=== PATIENT | male | born 1995 | race African-American/Black ===

== ENCOUNTER 2022-08-12 13:00 | Inpatient (IN) | payer MEDICAID, SELFPAY ==
[2022-08-12] VITALS (8 sets, daily range): BP systolic 126–146; BP diastolic 51–78; PULSE 60–105; RESP 14–18; TEMP 36.6–37.1; O2SAT 96–100; BMI 27.1; BMI 26.8
[2022-08-12 15:51] LABS: Absolute Lymphocyte Count 2.83 X10^3/uL (0.83-4.51); Absolute Neutrophil Count 11.6 X10^3/uL (2.0-7.7); Basophil# 0.11 X10^3/uL; Basophil% 0.7 % (0-1); Eosinophil# 0.17 X10^3/uL; Eosinophils% 1.1 % (0-5); Hemoglobin 14.8 g/dL (13.0-16.5); Lymphocyte # 2.83 X10^3/ul (0.83-4.51); Lymphocyte % 17.9 % (19-41); Mean Corp Hgb Conc 36.1 g/dL (32-36); Mean Corpuscular Hgb 28.4 pg (27.0-32.0); Mean Corpuscular Volume 78.7 fL (80-94); Mean Platelet Vol. 9.9 fl (6.2-12.0); Monocyte# 1.07 X10^3/uL; Monocyte% 6.8 % (0-10); NRBC Flagged by Analyzer 0.3 % (0-5); Neutrophil # 11.58 X10^3/uL (2.7-7.7); Neutrophil % 73.2 % (47-70); Platelet Count 326 K/mm3 (150-450); RBC Distribution Width CV 17.2 % (11.6-14.6); RBC Distribution Width SD 48.7 fl (35.1-43.9); Red Blood Count 5.21 M/mm3 (4.6-6.2); White Blood Count 15.8 K/mm3 (4.4-11.0)
[2022-08-12 16:09] LABS: ALB/GLOB Ratio 1.2 RATIO (0.9-2.4); AST(SGOT) 18 U/L (15-37); Alanine Aminotransfer ALT/SGPT 19 U/L (16-61); Albumin, Serum 4.1 g/dL (3.2-5.0); Alkaline Phosphatase 70 U/L (45-117); Anion Gap 8 (5-15); BUN 11 mg/dL (7-18); BUN/Creat Ratio 9.3 RATIO (10-20); Chloride 106 mmol/L (98-107); Creatinine, Serum 1.18 mg/dL (0.70-1.30); EST Glomerular Filtration Rate 79 mL/min (>60); Est Glom Filt Rate - Afr Amer 96 mL/min (>60); Estimated Creatinine Clearance 116.47 ml/min; Globulin 3.3 g/dL (2.2-4.2); Glucose 91 mg/dL (74-106); Potassium 3.6 mmol/L (3.5-5.1); Protein, Total 7.4 g/dL (6.4-8.2); Sodium Level 141 mmol/L (136-145)
--- NOTE | 2022-08-12 16:26 | CASEMGMT ---
CHELITA Note Referral Reason: DEIRDRE MERLOS met with patient and introduced herself and role as [facility] Senior Education Specialist. CHELITA inquired about patient's AOD history. Patient informed SW he wants to detox from alcohol and fentanyl, both last used yesterday. SW reviewed [facility] rules such as personal belongings being locked up. SW informed patient he would work with Gurdeep, addictions therapist, to discuss discharge planning when appropriate. Patient was receptive towards information and reported an understanding. SW left for Gurdeep, Addiction therapist, to inform her of the new admit. Plan: DEIRDRE SHAFER
[2022-08-12 16:29] LABS: Alcohol, Blood (Medical)-Serum < 3.0 mg/dL
[2022-08-12 16:29] LABS: Amphetamine Urine VISTA NEGATIVE (<1000 ng/mL); Barbiturate Urine VISTA NEGATIVE (< 200 ng/mL); Benzodiazepine Urine VISTA NEGATIVE (< 200 ng/mL); Cocaine Urine VISTA NEGATIVE (< 300 ng/mL); Ecstacy Urine VISTA NEGATIVE (< 500 ng/mL); Methadone Urine VISTA NEGATIVE (< 300 ng/mL); PCP Urine VISTA NEGATIVE (< 25 ng/mL); THC Urine VISTA POSITIVE (< 50 ng/mL); Vista UDS pH Range 6
--- NOTE | 2022-08-12 16:33 | EX.ED.DYSGE1 ---
HPI History of Present Illness Chief Complaint: Substance Abuse Informant: patient Narrative Narrative: Patient requests detox from fentanyl, heroin, and alcohol. He is working with a program in town called [facility]. He states he has been using fentanyl and heroin for quite a long time. He will use as much as he can get a hold of in any given day. He typically snorts drugs. He also admits to alcohol years. He states he drinks hard liquor and really does not drink a lot of alcohol, however he has gone through alcohol withdrawal in the past. He has never had seizures with alcohol withdrawal. [facility] Medical History Drug abuse Insomnia Allergy/AdvReac Type Severity Reaction Status Date / Time No Known Allergies Allergy Verified 08/12/22 13:00 Social History Smoking Status: Current every day smoker tobacco type: cigarettes ROS ROS ED Constitutional Constitutional ED: Denies chills or fever(s) Eyes Eyes: Denies change in vision or discharge from eye(s) ENT ENT ED: Denies discharge from eye(s), rhinorrhea or sore throat Cardiovascular Cardiovascular: Denies chest pain or palpitations Respiratory/Chest Respiratory/Chest: Denies cough or dyspnea Gastrointestinal Gastrointestinal: Denies abdominal pain, diarrhea, nausea or vomiting Genitourinary Genitourinary ED: Denies difficulty urinating or dysuria Musculoskeletal Musculoskeletal: Denies back pain or extremity pain Integumentary Denies Abrasions or rash Neurologic Neurologic: Denies headache(s) or weakness Psychiatric Psychiatric: Denies anxiety or depression Endocrine Endocrinology: Denies polydipsia or polyuria Allergic/Immunologic Allergic/Immunologic ED: Denies lip swelling or urticaria EXAM Physical Exam Const Vital Signs: 08/12/22 13:01 08/12/22 16:31 Temperature 98.4 F Temperature Source Temporal Pulse Rate 105 H 63 Respiratory Rate 18 14 Blood Pressure 126/78 H 146/64 H Blood Pressure Mean 94 91 Pulse Ox 99 100 Oxygen Delivery Method Room Air Room Air Positive well nourished and well developed General Appearance ED: well developed HEENT Reports normocephalic and head/scalp atraumatic Eyes PERRL and EOMs intact bilaterally Neck supple Chest Wall inspection of chest normal and palpation of chest normal Resp normal respiratory effort and clear to auscultation bilaterally Cardio regular rate and regular rhythm GI normal to inspection, nondistended, normoactive bowel sounds Palpation: soft Back/Spine no CVA tenderness Extremity normal to inspection Neuro oriented x3 and no sensory deficits noted Sensorium / Orientation: alert Motor Exam: strength 5/5 throughout Psych mental status grossly normal Skin no rashes or lesions noted MDM MDM MDM Narrative Medical decision making narrative: Lab work for addiction medicine obtained. Patient agreed to the contract for the detox program. Lab Data Attestation: I reviewed the patient's lab results. Labs: Laboratory Results - last 24 hr 08/12/22 08/12/22 08/12/22 15:35 15:35 15:35 WBC 15.8 H RBC 5.21 Hgb 14.8 Hct 41.0 MCV 78.7 L MCH 28.4 MCHC 36.1 H RDW Std Deviation 48.7 H RDW Coeff of Omar 17.2 H Plt Count 326 MPV 9.9 Immature Gran % (Auto) 0.300 Neut % (Auto) 73.2 H Lymph % (Auto) 17.9 L [place] % (Auto) 6.8 Eos % (Auto) 1.1 Baso % (Auto) 0.7 Absolute Neuts (auto) 11.6 H Absolute Lymphs (auto) 2.83 Nucleated RBC % 0.3 Sodium 141 Potassium 3.6 Chloride 106 Carbon Dioxide 27.0 Anion Gap 8 BUN 11 Creatinine 1.18 Estim Creat Clear Calc 116.47 Est GFR (MDRD) Af Amer 96 Est GFR (MDRD) Non-Af 79 BUN/Creatinine Ratio 9.3 L Glucose 91 Calcium 9.0 Total Bilirubin 1.30 H AST 18 ALT 19 Alkaline Phosphatase 70 Total Protein 7.4 Albumin 4.1 Globulin 3.3 Albumin/Globulin Ratio 1.2 Urine Opiates Screen Urine Methadone Screen Ur Barbiturates Screen Ur Phencyclidine Scrn Ur Amphetamines Screen MDMA (Ecstasy) Screen U Benzodiazepines Scrn Urine Cocaine Screen U Cannabinoids Screen Ur Drug Screen Comment Ethyl Alcohol < 3.0 08/12/22 15:50 WBC RBC Hgb Hct MCV MCH MCHC RDW Std Deviation RDW Coeff of Omar Plt Count MPV Immature Gran % (Auto) Neut % (Auto) Lymph % (Auto) [place] % (Auto) Eos % (Auto) Baso % (Auto) Absolute Neuts (auto) Absolute Lymphs (auto) Nucleated RBC % Sodium Potassium Chloride Carbon Dioxide Anion Gap BUN Creatinine Estim Creat Clear Calc Est GFR (MDRD) Af Amer Est GFR (MDRD) Non-Af BUN/Creatinine Ratio Glucose Calcium Total Bilirubin AST ALT Alkaline Phosphatase Total Protein Albumin Globulin Albumin/Globulin Ratio Urine Opiates Screen NEGATIVE Urine Methadone Screen NEGATIVE Ur Barbiturates Screen NEGATIVE Ur Phencyclidine Scrn NEGATIVE Ur Amphetamines Screen NEGATIVE MDMA (Ecstasy) Screen NEGATIVE U Benzodiazepines Scrn NEGATIVE Urine Cocaine Screen NEGATIVE U Cannabinoids Screen POSITIVE H Ur Drug Screen Comment Ethyl Alcohol Treatment and Re-Evaluation Narrative: White count is elevated at 15.8 with 73% neutrophils. Chemistry studies are unremarkable. LFTs significant only for a total bili of 1.3. EtOH is less than 3. Talk screen is positive only for cannabinoids. I spoke with the hospitalist who will be down to see the patient for admission. Discharge Plan Triage Chief Complaint: Substance Abuse ED Provider: Alona Shah Dx/Rx/DC Orders Clinical Impression: Desire for detoxification, Alcohol abuse, Opiate abuse, continuous Primary Care Provider: Care Physician,No Primary Disposition Disposition: Acute Care Hospital [facility]
--- NOTE | 2022-08-12 16:35 | ED.RN ---
PER PT OKAY TO GIVE INFORMATION/ UPDATES TO PHYLLIS MONTEIRO AT [phone] OR SAVITA MARTINEZ AT [phone]
--- NOTE | 2022-08-12 16:47 | HP.PCM.HOS_ITS ---
HPI - General General Date of Admission: 08/12/22 Date of Service: 08/12/22 Chief Complaint: Opiate/alcohol detox HPI Narrative ALVARO ZAPATA, is a 27 M who presented to the emergency department was [facility] on 08/12/2021 requesting detox from opiates and alcohol. The patient states he has been a longtime heavy drinker. He drinks approximately 1 pint of hard liquor daily. He has been through alcohol withdrawal before but never had seizures. With regards to his opiate abuse he, he states that he started abusing prescription drugs as he has a history of sickle cell disease and they were readily accessible. He states in 2019 he began abusing fentanyl and heroin. He is never used IV and all of his use has been intranasal. Last use was the day prior to presentation. He states he uses approximately 2 g daily. He is currently complaining of some nausea without vomiting and generalized malaise with body aches. Vital signs at presentation demonstrated a temperature of 98.4, heart rate 105, blood pressure 126/78, respiratory was 18 and oxygen saturation was 99% on room air. CBC showed a leukocytosis with a mild left shift at 73.2% neutrophilia. His hemoglobin was stable however his MCV is low consistent with sickle cell disease. His chemistry panel was unremarkable other than mildly elevated total bilirubin at 1.30. His toxicology was positive only for cannabis and his alcohol level was negative. [facility] Medical History Drug abuse Insomnia Marijuana use Sickle cell disease Tobacco abuse Allergy/AdvReac Type Severity Reaction Status Date / Time No Known Allergies Allergy Verified 08/12/22 13:00 Family History (Updated 08/12/22 @ 16:[address] Harriet Schwarz DO) Other Sickle cell anemia no surgical history Social History (Updated 08/12/22 @ 16:[address] Harriet Schwarz DO) Smoking Status: Current every day smoker tobacco type: cigarettes Smoking packs per day: 1 Smoking cigarettes per day: 20.0 alcohol intake: current alcohol intake frequency: 3 or more drinks per day details: Drinks approximately 1 pint of hard liquor daily substance use type: marijuana, heroin, opiates, painkillers and other details: Fentanyl Vital Signs Vital Signs Vital Signs: 08/12/22 13:01 08/12/22 16:31 Temperature 98.4 F Temperature Source Temporal Pulse Rate 105 H 63 Respiratory Rate 18 14 Blood Pressure 126/78 H 146/64 H Blood Pressure Mean 94 91 Pulse Ox 99 100 Oxygen Delivery Method Room Air Room Air Weight Weight: 101.151 kg Body Mass Index (BMI) 27.1 Physical Exam Const alert, oriented x3, no apparent distress, average body habitus and well nourished Constitutional Narrative: Very pleasant, -Azerbaijani male sitting up in a a bed, appears comfortable at this time, nontoxic General Appearance: cooperative HEENT normocephalic, head/scalp atraumatic, hearing grossly normal bilaterally and moist oral mucous membranes Resp normal respiratory effort, no retractions, no use of accessory muscles and clear to auscultation bilaterally Auscultation: Negative for crackles, rhonchi or wheezes Cardio regular rate, regular rhythm, S1 normal heart sound, S2 normal heart sound, no murmurs, no rub, no gallops and no clicks GI normal to inspection, nondistended, normoactive bowel sounds, soft to palpation and non-tender Extremity no clubbing, cyanosis or edema Extremity Narrative: 2+ pedal pulses Skin no rashes or lesions noted, no wounds, skin turgor normal, no jaundice, no petechiae and no mottling Skin Narrative: Multiple tattoos, no track alcaraz Neuro oriented x3, CN's II-XII intact bilaterally, moves all extremities and no focal motor deficits Speech: speech normal Motor Exam: strength 5/5 throughout Psych affect normal Psych Narrative: Very pleasant, appreciative of care and appropriately interactive Results Lab / Micro Data Result Diagrams: 08/12/22 15:35 08/12/22 15:35 Labs: Laboratory Results - last 24 hr 08/12/22 15:35: WBC 15.8 H, RBC 5.21, Hgb 14.8, Hct 41.0, MCV 78.7 L, MCH 28.4, MCHC 36.1 H, RDW Std Deviation 48.7 H, RDW Coeff of Omar 17.2 H, Plt Count 326, MPV 9.9, Immature Gran % (Auto) 0.300, Neut % (Auto) 73.2 H, Lymph % (Auto) 17.9 L, [place] % (Auto) 6.8, Eos % (Auto) 1.1, Baso % (Auto) 0.7, Absolute Neuts (auto) 11.6 H, Absolute Lymphs (auto) 2.83, Nucleated RBC % 0.3 08/12/22 15:35: Sodium 141, Potassium 3.6, Chloride 106, Carbon Dioxide 27.0, Anion Gap 8, BUN 11, Creatinine 1.18, Estim Creat Clear Calc 116.47, Est GFR (MDRD) Af Amer 96, Est GFR (MDRD) Non-Af 79, BUN/Creatinine Ratio 9.3 L, Glucose 91, Calcium 9.0, Total Bilirubin 1.30 H, AST 18, ALT 19, Alkaline Phosphatase 70, Total Protein 7.4, Albumin 4.1, Globulin 3.3, Albumin/Globulin Ratio 1.2 08/12/22 15:35: Ethyl Alcohol < 3.0 08/12/22 15:50: Urine Opiates Screen NEGATIVE, Urine Methadone Screen NEGATIVE, Ur Barbiturates Screen NEGATIVE, Ur Phencyclidine Scrn NEGATIVE, Ur Amphetamines Screen NEGATIVE, MDMA (Ecstasy) Screen NEGATIVE, U Benzodiazepines Scrn NEGATIVE, Urine Cocaine Screen NEGATIVE, U Cannabinoids Screen POSITIVE H, Ur Drug Screen Comment Assessment & Plan Assessment/Plan (1) Alcohol abuse: (2) Opiate abuse, continuous: (3) Desire for detoxification: (4) Leukocytosis: PLAN: Plan Alcohol abuse -Patient drinks about 1 pint of hard liquor a day -He has been through alcohol withdrawal in the past but never had seizures -Start phenobarbital taper -Thiamine and folate -supportive medications for symptom management -180 consultation Opiate detox -Patient states has been using intranasal fentanyl and heroin since approximately 2019 -Never has injected -Prior to that he was using prescription pills and abusing them as he has a history of sickle cell disease and they were readily accessible -Subutex per [facility] protocol -Supportive medication -Check HIV -180 consultation Leukocytosis -Suspect reactive -No signs of infection -Repeat CBC in a.m. History of sickle cell disease -Current hemoglobin is 14.8 but MCV is 78.7 consistent with sickle cell disease -No sign of acute decompensation -Monitor clinically Polysubstance abuse -Marijuana/opiates/alcohol -See above Tobacco abuse -Nicotine patch -Patient smokes 1 pack of cigarettes daily -Recommend cessation DVT prophylaxis -Low risk -Early ambulation CODE STATUS -Full code Charges/Coding Visit Charges Inpatient E&M: 50339 Init Hosp L1
[2022-08-12 17:46] LABS: HIV - WCH Non-Reactive (Nonreactive)
[2022-08-12] MEDS: Phenobarbital 32.4 MG Tablet 64.8 MG PO ×2 (18:45→22:28)
[2022-08-12] MEDS: hydrOXYzine PAM 25 MG Capsule 50 MG PO (18:46)
[2022-08-12] MEDS: Ondansetron 8 MG Tablet PO (18:48)
[2022-08-12] MEDS: Acetaminophen 325 MG Tablet 650 MG PO (19:03)
[2022-08-12] MEDS: Buprenorphine HCl 2 MG TAB.SUBL SL (20:12)
[2022-08-13] VITALS (8 sets, daily range): BP systolic 105–127; BP diastolic 43–56; PULSE 55–78; RESP 14–18; TEMP 36.3–36.7; O2SAT 96–100
[2022-08-13] MEDS: Phenobarbital 32.4 MG Tablet 64.8 MG PO ×6 (01:43→22:08)
[2022-08-13] MEDS: Buprenorphine HCl 2 MG TAB.SUBL SL ×3 (04:39→19:54)
[2022-08-13 06:58] LABS: Absolute Lymphocyte Count 3.05 X10^3/uL (0.83-4.51); Basophil# 0.11 X10^3/uL; Eosinophil# 0.38 X10^3/uL; Eosinophils% 3.5 % (0-5); Hematocrit 36.1 % (40-54); Hemoglobin 13.3 g/dL (13.0-16.5); Lymphocyte # 3.05 X10^3/ul (0.83-4.51); Lymphocyte % 28.1 % (19-41); Mean Corp Hgb Conc 36.8 g/dL (32-36); Mean Corpuscular Hgb 28.4 pg (27.0-32.0); Mean Corpuscular Volume 77.1 fL (80-94); Mean Platelet Vol. 9.7 fl (6.2-12.0); Monocyte# 1.24 X10^3/uL; Monocyte% 11.4 % (0-10); NRBC Flagged by Analyzer 0.3 % (0-5); Neutrophil # 6.04 X10^3/uL (2.7-7.7); Neutrophil % 55.6 % (47-70); Platelet Count 266 K/mm3 (150-450); RBC Distribution Width CV 16.8 % (11.6-14.6); RBC Distribution Width SD 46.9 fl (35.1-43.9); Red Blood Count 4.68 M/mm3 (4.6-6.2); White Blood Count 10.9 K/mm3 (4.4-11.0)
[2022-08-13] MEDS: Folic Acid 1 MG Tablet PO (10:01)
[2022-08-13] MEDS: Thiamine Hydrochloride 100 MG Tablet PO (10:01)
[2022-08-13] MEDS: Gabapentin 300 MG Capsule PO ×2 (10:01→18:17)
[2022-08-13] MEDS: Ondansetron 8 MG Tablet PO ×2 (10:11→19:40)
--- NOTE | 2022-08-13 10:25 | ADDICTION ---
This teletypewriter operator met with PT to conduct ASAM, MSE, AUDIT, DUDIT assessments and to plan for d/c. PT A+Ox4 and participated actively. All assessments completed and placed in PT's chart. PT will f/u with [facility] for follow-up recovery services. A cpr ambulance driver from this facility will provide transportation.
[2022-08-13] MEDS: hydrOXYzine PAM 25 MG Capsule 50 MG PO (11:53)
[2022-08-13] MEDS: cloNIDine HCl 0.1 MG Tablet PO (11:53)
--- NOTE | 2022-08-13 13:03 | PCM.PN.HOSP ---
Subjective Subjective Follow-up on acute opioid and alcohol withdrawal: Patient was seen and examined. He complains of feeling restless. No other acute events overnight. Objective Data Objective Data Vital Signs: Vital Signs Temp Pulse Resp BP Pulse Ox O2 Del Method 97.3 F L 78 18 122/51 H 100 Room Air 08/13/22 09:44 08/13/22 09:44 08/13/22 09:44 08/13/22 09:44 08/13/22 09:44 08/13/22 10:00 Oxygen Delivery Method Room Air Weight: 99.972 kg Body Mass Index (BMI) 26.8 Intake & Output: Intake and Output for Last 24 Hours 08/11/22 08/12/22 08/13/22 23:59 23:59 23:59 Intake Total 240 / 540 1200 / 1200 Balance 240 / 540 1200 / 1200 Lab / Micro Data Result Diagrams: 08/13/22 06:48 08/12/22 15:35 Labs: Laboratory Results - last 24 hr 08/12/22 15:35: WBC 15.8 H, RBC 5.21, Hgb 14.8, Hct 41.0, MCV 78.7 L, MCH 28.4, MCHC 36.1 H, RDW Std Deviation 48.7 H, RDW Coeff of Omar 17.2 H, Plt Count 326, MPV 9.9, Immature Gran % (Auto) 0.300, Neut % (Auto) 73.2 H, Lymph % (Auto) 17.9 L, [place] % (Auto) 6.8, Eos % (Auto) 1.1, Baso % (Auto) 0.7, Absolute Neuts (auto) 11.6 H, Absolute Lymphs (auto) 2.83, Nucleated RBC % 0.3 08/12/22 15:35: Sodium 141, Potassium 3.6, Chloride 106, Carbon Dioxide 27.0, Anion Gap 8, BUN 11, Creatinine 1.18, Estim Creat Clear Calc 116.47, Est GFR (MDRD) Af Amer 96, Est GFR (MDRD) Non-Af 79, BUN/Creatinine Ratio 9.3 L, Glucose 91, Calcium 9.0, Total Bilirubin 1.30 H, AST 18, ALT 19, Alkaline Phosphatase 70, Total Protein 7.4, Albumin 4.1, Globulin 3.3, Albumin/Globulin Ratio 1.2 08/12/22 15:35: Ethyl Alcohol < 3.0 08/12/22 15:35: HIV 1&2 Antibody Non-Reactive 08/12/22 15:50: Urine Opiates Screen NEGATIVE, Urine Methadone Screen NEGATIVE, Ur Barbiturates Screen NEGATIVE, Ur Phencyclidine Scrn NEGATIVE, Ur Amphetamines Screen NEGATIVE, MDMA (Ecstasy) Screen NEGATIVE, U Benzodiazepines Scrn NEGATIVE, Urine Cocaine Screen NEGATIVE, U Cannabinoids Screen POSITIVE H, Ur Drug Screen Comment 08/13/22 06:48: WBC 10.9, RBC 4.68, Hgb 13.3, Hct 36.1 L, MCV 77.1 L, MCH 28.4, MCHC 36.8 H, RDW Std Deviation 46.9 H, RDW Coeff of Omar 16.8 H, Plt Count 266, MPV 9.7, Immature Gran % (Auto) 0.400, Neut % (Auto) 55.6, Lymph % (Auto) 28.1, [place] % (Auto) 11.4 H, Eos % (Auto) 3.5, Baso % (Auto) 1.0, Absolute Neuts (auto) 6.0, Absolute Lymphs (auto) 3.05, Nucleated RBC % 0.3 Physical Exam Narrative Physical exam: General: Alert, Oriented x3, Cooperative, No apparent distress HEENT: Atraumatic Oral: Moist Mucosa Neck: Supple Lungs: Clear to auscultation Cardiovascular: HS I+II, regular, no murmurs Abdomen: Bowel Sounds Present, Soft, Non Tender Extremities: No edema Skin: No rashes, No breakdown Neurological: Grossly intact Psych/Mental Status: Appropriate Assessment & Plan Assessment/Plan (1) Alcohol abuse: (2) Opiate abuse, continuous: (3) Desire for detoxification: (4) Leukocytosis: PLAN: Plan 1. Acute alcohol and opiate withdrawal, slightly improved Continue on phenobarbital and Subutex Continue to monitor per protocol 2. Leukocytosis, reactive, improving 3. Polysubstance abuse, advised to quit 4. Sickle cell disease, unclear genotype 5. Nicotine dependence, advised to quit, Continue nicotine replacement 6. DVT prophylaxis?low risk, early ambulation recommended. Charges/Coding Visit Charges Inpatient E&M: 94830 Subs Hosp L1
--- NOTE | 2022-08-13 14:28 | CHAPLAIN ---
Type of Pastoral Visit _x__ Initial Visit ___ Follow-up Visit ___ On-call Visit ___ General Patient Visit ___ Spiritual Assessment ___ Family Conference ___ Bereavement ___ Rapid Response ___ Code Blue ___ Other (describe below) Pastoral Care Referral From _x__ Patient ___ Family ___ Nurse ___ Physician ___ Product Safety Manager ___ Real Time Analyst ___ Other (describe below) Sacrament/Intervention _x__ Active listening ___ Anointing ___ Latter-Day ___ Bereavement ___ Communion _x__ Wendi exploration ___ _x__ Life review _x__ Prayer ___ Reconciliation ___ Sacrament of Sick _x__ Supportive presence ___ Wedding ___ Other (describe below) Pastoral Comments long visit with presence given to listen to the patient explain his situation, his frustrations with self and others over his drug use, his desire for a change, and his wendi in God; patient identifies as a Roman Catholic; pt has been with [facility] before and plans to return there for support in recovery; pt goal is to find peace and to have a normal life; pt speaks of his understanding that it is God that is his best help and that he wants to follow that path; pt welcomes the time and affirmation given from the hair sample matcher; pt welcomes prayer and also prays himself; pt is open for more visits as possible
[2022-08-14] VITALS (7 sets, daily range): BP systolic 96–123; BP diastolic 34–65; PULSE 70–98; RESP 14–18; TEMP 36.4–36.8; O2SAT 98–100
[2022-08-14] MEDS: Phenobarbital 32.4 MG Tablet 64.8 MG PO ×6 (01:35→21:45)
[2022-08-14] MEDS: Buprenorphine HCl 2 MG TAB.SUBL SL ×3 (04:09→20:01)
[2022-08-14] MEDS: Dicyclomine 10 MG Capsule 20 MG PO (09:35)
[2022-08-14] MEDS: hydrOXYzine PAM 25 MG Capsule 50 MG PO ×2 (09:35→17:42)
[2022-08-14] MEDS: Ondansetron 8 MG Tablet PO ×2 (09:35→17:42)
[2022-08-14] MEDS: Gabapentin 300 MG Capsule PO (12:07)
[2022-08-14] MEDS: Folic Acid 1 MG Tablet PO (12:07)
[2022-08-14] MEDS: Thiamine Hydrochloride 100 MG Tablet PO (12:07)
--- NOTE | 2022-08-14 14:20 | CHAPLAIN ---
Type of Pastoral Visit ___ Initial Visit _x__ Follow-up Visit ___ On-call Visit ___ General Patient Visit ___ Spiritual Assessment ___ Family Conference ___ Bereavement ___ Rapid Response ___ Code Blue ___ Other (describe below) Pastoral Care Referral From _x__ Patient ___ Family ___ Nurse ___ Physician ___ [employer] Insights ___ Green Energy Marketing Analyst ___ Other (describe below) Sacrament/Intervention _x__ Active listening ___ Anointing ___ Judaism ___ Bereavement ___ Communion ___ Wendi exploration ___ ___ Life review _x__ Prayer ___ Reconciliation ___ Sacrament of Sick ___ Supportive presence ___ Wedding ___ Other (describe below) Pastoral Comments follow up to patient as requested yesterday; pt states that he is managing and just staying focused on TV and not on his problems; pt states he wants to focus on 'one day at a time' and not think about the long distance billing operator; pt says that he will keep looking for Reji in his life and give every day to God; pt prays a prayer of forgiveness and a surrender to God at his initiative; prayer given as well for patient
[2022-08-14] MEDS: Methocarbamol 750 MG Tablet 1500 MG PO (18:10)
--- NOTE | 2022-08-14 18:50 | PCM.PN.HOSP ---
Subjective Subjective Follow-up on acute opioid and alcohol withdrawal: Patient was seen and examined.? He complains of feeling restless.? No other acute events overnight. Objective Data Objective Data Vital Signs: Vital Signs Temp Pulse Resp BP Pulse Ox O2 Del Method 98.0 F 86 16 123/44 H 100 Room Air 08/14/22 17:26 08/14/22 17:26 08/14/22 17:26 08/14/22 17:26 08/14/22 17:26 08/14/22 17:26 Oxygen Delivery Method Room Air Weight: 99.972 kg Body Mass Index (BMI) 26.8 Intake & Output: Intake and Output for Last 24 Hours 08/12/22 08/13/22 08/14/22 23:59 23:59 23:59 Intake Total 240 / 540 1700 / 2200 500 / 500 Balance 240 / 540 1700 / 2200 500 / 500 Lab / Micro Data Result Diagrams: 08/13/22 06:48 08/12/22 15:35 Physical Exam Narrative Physical exam: General: Alert, Oriented x3, Cooperative, No apparent distress HEENT: Atraumatic Oral: Moist Mucosa Neck: Supple Lungs: Clear to auscultation Cardiovascular: HS I+II, regular, no murmurs Abdomen: Bowel Sounds Present, Soft, Non Tender Extremities: No edema Skin: No rashes, No breakdown Neurological: Grossly intact Psych/Mental Status: Appropriate Assessment & Plan Assessment/Plan (1) Alcohol abuse: (2) Opiate abuse, continuous: (3) Desire for detoxification: (4) Leukocytosis: PLAN: Plan 1. Acute alcohol and opiate withdrawal, slightly improved Continue on phenobarbital and Subutex Continue to monitor per protocol 2. Leukocytosis, reactive, improving 3. Polysubstance abuse, advised to quit 4. Sickle cell disease, unclear genotype 5. Nicotine dependence, advised to quit, Continue nicotine replacement 6. Schizoaffective disorder, resume home meds 7. DVT prophylaxis?low risk, early ambulation recommended. Charges/Coding Visit Charges Inpatient E&M: 08950 Subs Hosp L2
[2022-08-14] MEDS: OLANZapine 5 MG/TAB TAB.RAPDIS PO (20:01)
[2022-08-14] MEDS: Escitalopram Oxalate 20 MG Tablet PO (20:01)
[2022-08-14] MEDS: DULoxetine Hcl 60 MG Capsule PO (20:01)
[2022-08-14] MEDS: Baclofen 10 MG Tablet PO (20:01)
[2022-08-14] MEDS: QUEtiapine 25 MG Tablet 50 MG PO (21:45)
[2022-08-14] MEDS: traZODone 50 MG Tablet PO (21:45)
[2022-08-15 02:00] VITALS: BP 102/48; PULSE 67; RESP 16; TEMP 36.4; O2SAT 98
[2022-08-15] MEDS: Phenobarbital 32.4 MG Tablet 64.8 MG PO ×2 (02:06→07:02)
[2022-08-15 02:17] VITALS: BP 117/51; PULSE 69; RESP 16; TEMP 36.4; O2SAT 98
[2022-08-15 06:56] VITALS: BP 132/53; PULSE 72; RESP 16; TEMP 36.4; O2SAT 99
[2022-08-15] MEDS: Buprenorphine HCl 2 MG TAB.SUBL SL (06:59)
[2022-08-15 09:06] VITALS: BP 99/52; PULSE 62; RESP 12; TEMP 36.6; O2SAT 94
[2022-08-15] MEDS: OLANZapine 5 MG/TAB TAB.RAPDIS PO (09:18)
[2022-08-15] MEDS: Folic Acid 1 MG Tablet PO (09:18)
[2022-08-15] MEDS: Escitalopram Oxalate 20 MG Tablet PO (09:19)
[2022-08-15] MEDS: DULoxetine Hcl 60 MG Capsule PO (09:19)
[2022-08-15] MEDS: Baclofen 10 MG Tablet PO (09:19)
[2022-08-15] MEDS: Thiamine Hydrochloride 100 MG Tablet PO (09:20)
--- NOTE | 2022-08-15 09:57 | DCINST_ITS ---
Discharge Instructions Diet Discharge Diet: No restrictions Activity Discharge Activity: Return to Normal Activity Follow Up Care Test Results: Test results from this visit will be discussed in further detail at your follow- up appointment, if applicable. Discharge Plan Admission Admit Date/Time: 08/12/22 16:30 Primary Reason for Your Visit: Acute alcohol and opioid withdrawal Attending Provider: Mary Zavala Primary Care Provider: Care Physician,No Primary Consulting Providers: Harriet Schwarz Discharge Orders/Prescriptions Prescriptions: Continued nicotine 14 mg/24 hr patch 24 hour 1 patch topical DAILY 28 Days Qty: 28 0RF trazodone 50 mg tablet 50 mg PO QHS 30 Days Qty: 30 0RF olanzapine 5 mg tablet 5 mg PO DAILY 30 Days Qty: 30 0RF Label Comments: TAKE 1 TABLET BY MOUTH EVERY DAY baclofen 10 mg tablet 10 mg PO DAILY 30 Days Qty: 30 0RF Label Comments: TAKE 1/2 TO 1 TABLET MOUTH 3 TIMES DAILY NEEDED MAY CAUSE DROWSINESS folic acid 1 mg tablet 1 mg PO DAILY 30 Days Qty: 30 0RF Label Comments: TAKE 1 TABLET BY MOUTH EVERY DAY escitalopram oxalate 20 mg tablet 20 mg PO DAILY 30 Days Qty: 30 0RF duloxetine 60 mg capsule,delayed release(DR/EC) 60 mg PO DAILY 30 Days Qty: 30 0RF Label Comments: TAKE 1 CAPSULE BY MOUTH DAILY quetiapine 50 mg tablet 50 mg PO QHS 30 Days Qty: 30 0RF Label Comments: TAKE 1 TABLET BY MOUTH EVERYDAY AT BEDTIME Referrals / Follow Up: Care Physician,No Primary [Primary Care Provider] - Disposition Disposition (needs filled in before D/C Order can be placed): Home, Self Care
--- NOTE | 2022-08-15 10:04 | CASEMGMT ---
Per physician patient is asking to be set up with a Psychiatrist. Patient is also asking that all of his mental health prescriptions be filled. CHELITA spoke with Gurdeep, project management it specialist at [facility] and asked about [facility]. CHELITA has been told in the past that patient's mental health medications are stopped when patients enter their program. This would be concerning. Patient told physician he has Schizophrenia. Gurdeep said she has heard that they take away their meds, but has not verified this. CHELITA called [facility] in [place] and asked if patient's are allowed to take their mental health medications while in their program. SW was told patient's can take them as long as they are not controlled substances. CHELITA notified physician. CHELITA then spoke with patient. Introduced self and role at [facility]. CHELITA asked patient if he would like a Psychiatrist in the [place] area or in the [place] area. Patient said [place] as he will be staying here. CHELITA called Dr Whitmore's office, but they were closed today. CHELITA called Dr Antony's office. Their voice mail said they are not taking any new patients. CHELITA called Floyd with [facility] and asked if he could call CHELITA back. Danya Avila [facility]
--- NOTE | 2022-08-15 10:08 | PCM.DC.SUM ---
Providers Date of Admission: 08/12/22 Date of Discharge: 08/15/22 Primary Care Physician: No Primary Care Phys Reason For Visit: OPIATES DETOX Diagnosis Discharge Diagnosis (1) Alcohol abuse: Status: Acute Code(s): F10.10 - Alcohol abuse, uncomplicated (2) Opiate abuse, continuous: Status: Acute Code(s): F11.10 - Opioid abuse, uncomplicated (3) Desire for detoxification: Status: Acute (4) Leukocytosis: Status: Acute Code(s): D72.829 - Elevated white blood cell count, unspecified Plan 1. Acute alcohol and opiate withdrawal 2. Leukocytosis, reactive 3. Polysubstance abuse 4. Sickle cell disease, unclear genotype 5. Nicotine dependence 6. Schizoaffective disorder Medications at Discharge Home Medications baclofen 10 mg tablet 10 mg PO DAILY muscle spasms 30 days #30 tabs 08/15/22 duloxetine 60 mg capsule,delayed release 60 mg PO DAILY depression 30 days #30 caps 08/15/22 escitalopram oxalate 20 mg tablet 20 mg PO DAILY mood 30 days #30 tabs 08/15/22 folic acid 1 mg tablet 1 mg PO DAILY supplement 30 days #30 tabs 08/15/22 nicotine 14 mg/24 hr daily transdermal patch 1 patch topical DAILY smoking 28 days #28 ea 08/15/22 olanzapine 5 mg tablet 5 mg PO DAILY mood 30 days #30 tabs 08/15/22 quetiapine 50 mg tablet 50 mg PO QHS mood 30 days #30 tabs 08/15/22 trazodone 50 mg tablet 50 mg PO QHS sleep 30 days #30 tabs 08/15/22 Hospital Course Procedures None Summary of Care Provided Minutes Spent on Discharge: 25 Hospital Course: 27 y/o male with past medical history of polysubstance use, schizoaffective disorder, sickle cell disease who comes in requesting from detox from alcohol and opioids. Patient admits to abusing fentanyl and heroin. He snorts them. He also drinks about a pint of hard liquor every day. His urine tox was positive for cannabinoids. He was admitted to the MedSurg unit, monitored on telemetry. No acute events. Patient schizoaffective medications were resumed. Patient requested referral to a psychiatrist. Social work was consulted. Patient was also seen by the ecclesiastical worker. He will follow-up for inpatient drug rehab with [facility]. He was given refills of his medications. He will follow-up within a week with a psychiatrist. Social work to follow-up and give him phone numbers as the offices were closed on Thursday. On the day of discharge, patient was seen and examined. He denied any new complaints. Physical Exam Narrative Physical exam: General: Alert, Oriented x3, Cooperative, No apparent distress HEENT: Atraumatic Oral: Moist Mucosa Neck: Supple Lungs: Clear to auscultation Cardiovascular: HS I+II, regular, no murmurs Abdomen: Bowel Sounds Present, Soft, Non Tender Extremities: No edema Skin: No rashes, No breakdown Neurological: Grossly intact Psych/Mental Status: Appropriate Weight / BMI Weight Weight: 99.972 kg Body Mass Index (BMI) 26.8 ABG / Lab / Microbiology Data Result Diagrams: 08/13/22 06:48 08/12/22 15:35 D/C Instructions Discharge Diet: No restrictions Meaningful Use Info Meaningful Use Diagnoses (Choose all that apply): None applicable Discharge Plan Admission Admit Date/Time: 08/12/22 16:30 Primary Reason for Your Visit: Acute alcohol and opioid withdrawal Attending Provider: Mary Zavala Primary Care Provider: Care Physician,No Primary Consulting Providers: Harriet Schwarz Discharge Orders/Prescriptions Prescriptions: Continued nicotine 14 mg/24 hr patch 24 hour 1 patch topical DAILY 28 Days Qty: 28 0RF trazodone 50 mg tablet 50 mg PO QHS 30 Days Qty: 30 0RF olanzapine 5 mg tablet 5 mg PO DAILY 30 Days Qty: 30 0RF Label Comments: TAKE 1 TABLET BY MOUTH EVERY DAY baclofen 10 mg tablet 10 mg PO DAILY 30 Days Qty: 30 0RF Label Comments: TAKE 1/2 TO 1 TABLET MOUTH 3 TIMES DAILY NEEDED MAY CAUSE DROWSINESS folic acid 1 mg tablet 1 mg PO DAILY 30 Days Qty: 30 0RF Label Comments: TAKE 1 TABLET BY MOUTH EVERY DAY escitalopram oxalate 20 mg tablet 20 mg PO DAILY 30 Days Qty: 30 0RF duloxetine 60 mg capsule,delayed release(DR/EC) 60 mg PO DAILY 30 Days Qty: 30 0RF Label Comments: TAKE 1 CAPSULE BY MOUTH DAILY quetiapine 50 mg tablet 50 mg PO QHS 30 Days Qty: 30 0RF Label Comments: TAKE 1 TABLET BY MOUTH EVERYDAY AT BEDTIME Referrals / Follow Up: Danya Avila CIRCUIT DESIGNER EXTRUSION ENGINEER [Other] (Please call the Photographer Portrait Danya ([phone]) on Thursday08-18-22 in the afternoon for your appointment. Thank you) Care Physician,No Primary [Primary Care Provider] - Disposition Disposition (needs filled in before D/C Order can be placed): Home, Self Care Charges/Coding Visit Charges Inpatient E&M: 28690 Disch Hosp
--- NOTE | 2022-08-15 10:46 | CASEMGMT ---
CHELITA spoke with Floyd and he said he is not able to schedule appts for Dr Whitmore. Floyd suggested SW leave a voice mail and they will contact CHELITA on Thursday. CHELITA spoke with patient and he said he will not be able to have his cell phone, but there is a phone there that he can use. Patient said he could call CHELITA. CHELITA told patient CHELITA will leave a message for the Psychiatrists office to schedule an appt. CHELITA told patient to call CHELITA Thursday afternoon 08-18-22. CHELITA put SW's name and number and instructions to call CHELITA on Thursday in patient's discharge instructions. CHELITA also gave patient CHELITA's card. CHELITA notified physician of plan and she was in agreement. CHELITA called Dr Whitmore's office and left a message with SW's name and number and that CHELITA would like to schedule an appt for patient. Danya Avila REGIONAL ECONOMIST [place]
--- NOTE | 2022-08-18 12:05 | CASEMGMT ---
CHELITA called Dr Whitmore's office and spoke with Tatyana. CHELITA scheduled an appointment for patient for September 24 at 8:30a. CHELITA let Tatyana know patient cannot be reached by phone currently so patient was going to call CHELITA for his appointment. CHELITA let Tatyana know if CHELITA does not hear from him CHELITA will let her know so the appointment can be canceled. Danya Avila MANAGER OF SELECTION AND ASSESSMENT [place]
--- NOTE | 2022-08-26 10:42 | CASEMGMT ---
CHELITA attempted to call patient as he did not call CHELITA the Thursday after his discharge to obtain his Psychiatrist appointment. A lady answered patient's phone stating, [facility]. CHELITA explained CHELITA has an appointment for patient that he was supposed to call CHELITA about the Thursday after his discharge from the hospital. The lady told CHELITA she will have to have someone call CHELITA back. Danya SHAFER
--- NOTE | 2022-08-28 14:25 | CASEMGMT ---
CHELITA called Dr Whitmore's office and left a message canceling the appointment for patient on Sep 24 at 8:30a as CHELITA has not been able to reach patient. Danya SHAFER
== END 2022-08-15 13:53 | disposition home or self-care (01) | DRG 772 ==
LOC: ED 16:00 → PCU 16:42
PROVIDERS: Admitting Provider Internal Medicine; Emergency Provider Emergency Medicine; Visit Provider Internal Medicine
DX: F11.13 Opioid abuse with withdrawal (principal); D57.1 Sickle-cell disease without crisis; F25.9 Schizoaffective disorder, unspecified; F10.10 Alcohol abuse, uncomplicated; F12.90 Cannabis use, unspecified, uncomplicated; D72.829 Elevated white blood cell count, unspecified; F17.210 Nicotine dependence, cigarettes, uncomplicated; Y90.0 Blood alcohol level of less than 20 mg/100 ml; Z79.899 Other long term (current) drug therapy
CPT/HCPCS: 36415; 80053; 80307; 82077; 85025; 86703; 97802; 99252; 99283; J7030; A4216; G0463

== ENCOUNTER 2022-08-21 22:13 | Emergency (ER) | payer MEDICAID, SELFPAY ==
[2022-08-21 22:14] VITALS: BP 133/43; PULSE 85; RESP 18; TEMP 36.8; O2SAT 100; BMI 29.0
--- NOTE | 2022-08-21 22:27 | EKG12_ITS ---
Test Reason : [facility] Blood Pressure : / mmHG Vent. Rate : 073 BPM Atrial Rate : 073 BPM P-R Int : 174 ms QRS Dur : 082 ms QT Int : 390 ms P-R-T Axes : 058 045 017 degrees QTc Int : 429 ms Normal sinus rhythm Normal ECG Confirmed by AMADOR GUADARRAMA MD ([id number]), food expeditor WENDI SHAH ([id number]) on 08/25/2022 11:44:41 AM Referred By: AMADO Confirmed By:AMADOR GUADARRAMA MD
--- NOTE | 2022-08-21 22:52 | EDS_ITS ---
HPI HPI - Psych History of Present Illness Chief Complaint: Suicidal Informant: patient Narrative Narrative: Patient is a 27 year old male with history of sickle cell disease, alcohol abuse, opioid abuse and possibly schizophrenia. Patient was just admitted to our hospital for inpatient opiate/alcohol detox. He is presenting with auditory and visual hallucinations as well as SI and HI. Patient states he is having thoughts of wanting to hang himself. As far as homicidal ideations he states is more sporadic. When his friend was driving him here he thought about taking the steering well and crashing the car which would kill them both. He also thought about just jumping on the car. He does have a history of prior suicide attempt and was admitted to [place] this last summer. He states his meds (olanzapine, quetiapine, trazodone and escitalopram) are not working. They were just recently refilled when he was discharged on 08/15/2022. Patient does have a family history of schizophrenia. He does not know if he carries a diagnosis of schizophrenia. Finally he has been having some mild chest pressure for the past few days. This has been constant. He denies any cold or flu symptoms. He states this does not feel like his sickle cell. [facility] Medical History Drug abuse Insomnia Marijuana use Sickle cell disease Tobacco abuse Home Medications baclofen 10 mg tablet 10 mg PO DAILY muscle spasms 30 days #30 tabs 08/15/22 [Rx Last Taken Unknown] duloxetine 60 mg capsule,delayed release 60 mg PO DAILY depression 30 days #30 caps 08/15/22 [Rx Last Taken Unknown] escitalopram oxalate 20 mg tablet 20 mg PO DAILY mood 30 days #30 tabs 08/15/22 [Rx Last Taken Unknown] folic acid 1 mg tablet 1 mg PO DAILY supplement 30 days #30 tabs 08/15/22 [Rx Last Taken Unknown] olanzapine 5 mg tablet 5 mg PO DAILY mood 30 days #30 tabs 08/15/22 [Rx Last Taken 3 Days Ago ~08/09/22] quetiapine 50 mg tablet 50 mg PO QHS mood 30 days #30 tabs 08/15/22 [Rx Last Taken 3 Days Ago ~08/09/22] trazodone 50 mg tablet 50 mg PO QHS sleep 30 days #30 tabs 08/15/22 [Rx Last Taken 3 Days Ago ~08/09/22] Allergy/AdvReac Type Severity Reaction Status Date / Time No Known Allergies Allergy Verified 08/21/22 22:17 Family History Other Sickle cell anemia Social History Smoking Status: Current every day smoker tobacco type: cigarettes alcohol intake: current alcohol intake frequency: 3 or more drinks per day details: Drinks approximately 1 pint of hard liquor daily substance use type: marijuana, heroin, opiates, painkillers and other details: Fentanyl ROS ROS ED Constitutional Constitutional ED: Denies chills or fever(s) ENT ENT ED: Denies rhinorrhea or sore throat Cardiovascular Cardiovascular: Reports chest pain Respiratory/Chest Respiratory/Chest: Denies cough or dyspnea Gastrointestinal Gastrointestinal: Denies abdominal pain, nausea or vomiting Musculoskeletal Musculoskeletal: Denies arthralgias or myalgias Integumentary Denies rash Neurologic Neurologic: Denies headache(s) or weakness Psychiatric Psychiatric: Reports depression, suicidal ideation and suicidal thoughts EXAM Physical Exam Const Vital Signs: 08/21/22 22:14 08/22/22 01:05 08/22/22 02:16 Temperature 98.3 F Temperature Source Temporal Pulse Rate 85 71 Respiratory Rate 18 16 16 Blood Pressure 133/43 H 123/61 H Blood Pressure Mean 73 81 Pulse Ox 100 98 Oxygen Delivery Method Room Air Room Air Room Air 08/22/22 03:27 08/22/22 05:19 Temperature Temperature Source Pulse Rate 80 73 Respiratory Rate 18 16 Blood Pressure 135/56 H Blood Pressure Mean 82 Pulse Ox 97 Oxygen Delivery Method Room Air Positive well nourished and well developed General Appearance ED: well developed and NAD HEENT Reports moist mucous membranes normocephalic and atraumatic Eyes PERRL and EOMs intact bilaterally Neck supple and no JVD Resp normal respiratory effort and clear to auscultation bilaterally Cardio no murmurs Rate: regular rate Rhythm: regular rhythm GI non-tender and non-distended Palpation: soft Neuro oriented x3 Neuro Narrative: No focal deficits appreciated Sensorium / Orientation: alert Psych cooperative Appearance: grossly normal Attitude: calm Activity / Motor Behavior: appropriate eye contact Speech: normal speech Mood & Affect: depressed and flat affect Thought Process: normal thought process Thought Content: suicidality and delusion(s) Attention / Concentration: attention grossly intact Insight: fair Judgement: poor Skin Lesions: no lesions Rashes: no rashes MDM MDM MDM Narrative Medical decision making narrative: Patient's evaluated for suicidal ideations, HI which seems to be more passive as well as auditory visual hallucinations. Do think patient benefit from inpatient psychiatric evaluation. Patient is medically cleared. He is about leukocytosis 16.2 which is nonspecific. Urine tox is positive for obituaries was consistent with his recent mission for alcohol detox. Discussed with Ginette from crisis who independently evaluated patient. She agrees. We will work on getting placement. Cut Off slip is filled out. Patient is accepted to [facility] by Dr. Hernandez. Patient is given evening trazodone as well as nicotine patch. He is having hard time sleeping so he is given oral Ativan. Lab Data Attestation: I reviewed the patient's lab results. Labs: Laboratory Results - last 24 hr 08/21/22 08/21/22 08/21/22 22:25 22:45 22:45 WBC 16.2 H RBC 4.84 Hgb 13.6 Hct 37.4 L MCV 77.3 L MCH 28.1 MCHC 36.4 H RDW Std Deviation 46.3 H RDW Coeff of Omar 16.6 H Plt Count 305 MPV 9.4 Immature Gran % (Auto) 0.300 Neut % (Auto) 52.1 Lymph % (Auto) 33.4 [place] % (Auto) 11.7 H Eos % (Auto) 1.8 Baso % (Auto) 0.7 Absolute Neuts (auto) 8.4 H Absolute Lymphs (auto) 5.40 H Nucleated RBC % 0.3 [address] Path Review May foll Anisocytosis 1+ Microcytosis 1+ Sodium 140 Potassium 4.0 Chloride 109 H Carbon Dioxide 26.0 Anion Gap 5 BUN 16 Creatinine 1.14 Estim Creat Clear Calc 110.97 Est GFR (MDRD) Af Amer 100 Est GFR (MDRD) Non-Af 82 BUN/Creatinine Ratio 14.0 Glucose 102 Calcium 8.8 Total Bilirubin 0.60 AST 28 ALT 40 Alkaline Phosphatase 73 Troponin I High Sens 6 Total Protein 7.1 Albumin 4.0 Globulin 3.1 Albumin/Globulin Ratio 1.3 Urine Opiates Screen NEGATIVE Urine Methadone Screen NEGATIVE Ur Barbiturates Screen POSITIVE H Ur Phencyclidine Scrn NEGATIVE Ur Amphetamines Screen NEGATIVE MDMA (Ecstasy) Screen NEGATIVE U Benzodiazepines Scrn NEGATIVE Urine Cocaine Screen NEGATIVE U Cannabinoids Screen NEGATIVE Ur Drug Screen Comment Ethyl Alcohol 08/21/22 22:45 WBC RBC Hgb Hct MCV MCH MCHC RDW Std Deviation RDW Coeff of Omar Plt Count MPV Immature Gran % (Auto) Neut % (Auto) Lymph % (Auto) [place] % (Auto) Eos % (Auto) Baso % (Auto) Absolute Neuts (auto) Absolute Lymphs (auto) Nucleated RBC % Diff Path Review Anisocytosis Microcytosis Sodium Potassium Chloride Carbon Dioxide Anion Gap BUN Creatinine Estim Creat Clear Calc Est GFR (MDRD) Af Amer Est GFR (MDRD) Non-Af BUN/Creatinine Ratio Glucose Calcium Total Bilirubin AST ALT Alkaline Phosphatase Troponin I High Sens Total Protein Albumin Globulin Albumin/Globulin Ratio Urine Opiates Screen Urine Methadone Screen Ur Barbiturates Screen Ur Phencyclidine Scrn Ur Amphetamines Screen MDMA (Ecstasy) Screen U Benzodiazepines Scrn Urine Cocaine Screen U Cannabinoids Screen Ur Drug Screen Comment Ethyl Alcohol < 3.0 Rhythm Strip Rhythm Strip: Sinus Rhythm Rate: 73 Ectopy: None EKG Initial EKG: Attestation: I personally reviewed and interpreted this EKG as follows: Interpretation: Sinus Rhythm Comments: Normal sinus rhythm at a rate of 73 bpm Normal axis Normal intervals Normal ST segments Discharge Plan Triage Chief Complaint: Suicidal ED Provider: Destiney Valdez Dx/Rx/DC Orders Clinical Impression: Depression with suicidal ideation Prescriptions: No Action trazodone 50 mg tablet 50 mg PO QHS 30 Days Qty: 30 0RF olanzapine 5 mg tablet 5 mg PO DAILY 30 Days Qty: 30 0RF Label Comments: TAKE 1 TABLET BY MOUTH EVERY DAY baclofen 10 mg tablet 10 mg PO DAILY 30 Days Qty: 30 0RF Label Comments: TAKE 1/2 TO 1 TABLET MOUTH 3 TIMES DAILY NEEDED MAY CAUSE DROWSINESS folic acid 1 mg tablet 1 mg PO DAILY 30 Days Qty: 30 0RF Label Comments: TAKE 1 TABLET BY MOUTH EVERY DAY escitalopram oxalate 20 mg tablet 20 mg PO DAILY 30 Days Qty: 30 0RF duloxetine 60 mg capsule,delayed release(DR/EC) 60 mg PO DAILY 30 Days Qty: 30 0RF Label Comments: TAKE 1 CAPSULE BY MOUTH DAILY quetiapine 50 mg tablet 50 mg PO QHS 30 Days Qty: 30 0RF Label Comments: TAKE 1 TABLET BY MOUTH EVERYDAY AT BEDTIME Primary Care Provider: Care Physician,No Primary Referrals: Care Physician,No Primary [Primary Care Provider] - Disposition Disposition: Psychiatric Hospital or Unit Discharge Location: [facility]
[2022-08-21 22:57] LABS: Absolute Neutrophil Count 8.4 X10^3/uL (2.0-7.7); Basophil# 0.11 X10^3/uL; Basophil% 0.7 % (0-1); Eosinophil# 0.29 X10^3/uL; Eosinophils% 1.8 % (0-5); Hematocrit 37.4 % (40-54); Hemoglobin 13.6 g/dL (13.0-16.5); Lymphocyte % 33.4 % (19-41); Mean Corp Hgb Conc 36.4 g/dL (32-36); Mean Corpuscular Hgb 28.1 pg (27.0-32.0); Mean Corpuscular Volume 77.3 fL (80-94); Mean Platelet Vol. 9.4 fl (6.2-12.0); Monocyte# 1.89 X10^3/uL; Monocyte% 11.7 % (0-10); NRBC Flagged by Analyzer 0.3 % (0-5); Neutrophil # 8.44 X10^3/uL (2.7-7.7); Neutrophil % 52.1 % (47-70); POSITIVE DIFFERENTIAL YES; POSITIVE MORPHOLOGY YES; Platelet Count 305 K/mm3 (150-450); RBC Distribution Width CV 16.6 % (11.6-14.6); RBC Distribution Width SD 46.3 fl (35.1-43.9); Red Blood Count 4.84 M/mm3 (4.6-6.2); White Blood Count 16.2 K/mm3 (4.4-11.0)
[2022-08-21 22:59] LABS: Differential Indicated SCAN CRITERIA MET
[2022-08-21 23:07] LABS: Amphetamine Urine VISTA NEGATIVE (<1000 ng/mL); Barbiturate Urine VISTA POSITIVE (< 200 ng/mL); Benzodiazepine Urine VISTA NEGATIVE (< 200 ng/mL); Cocaine Urine VISTA NEGATIVE (< 300 ng/mL); Ecstacy Urine VISTA NEGATIVE (< 500 ng/mL); Methadone Urine VISTA NEGATIVE (< 300 ng/mL); PCP Urine VISTA NEGATIVE (< 25 ng/mL); THC Urine VISTA NEGATIVE (< 50 ng/mL); Vista UDS pH Range 5
[2022-08-21 23:18] LABS: ALB/GLOB Ratio 1.3 RATIO (0.9-2.4); AST(SGOT) 28 U/L (15-37); Alanine Aminotransfer ALT/SGPT 40 U/L (16-61); Alkaline Phosphatase 73 U/L (45-117); Anion Gap 5 (5-15); BUN 16 mg/dL (7-18); Calcium,Total 8.8 mg/dL (8.5-10.1); Chloride 109 mmol/L (98-107); Creatinine, Serum 1.14 mg/dL (0.70-1.30); EST Glomerular Filtration Rate 82 mL/min (>60); Est Glom Filt Rate - Afr Amer 100 mL/min (>60); Estimated Creatinine Clearance 110.97 ml/min; Globulin 3.1 g/dL (2.2-4.2); Glucose 102 mg/dL (74-106); Protein, Total 7.1 g/dL (6.4-8.2); Sodium Level 140 mmol/L (136-145); Troponin-I HS 6 pg/mL (3.0-78.0)
[2022-08-21 23:43] LABS: Alcohol, Blood (Medical)-Serum < 3.0 mg/dL
[2022-08-22 00:20] LABS: Anisocytosis 1+; Microcytosis 1+
--- NOTE | 2022-08-22 00:50 | NURSING ---
Addendum entered by Zahida Chao 08/22/22 05:42: [facility] HAS ACCEPTED AND CALLED BACK WITH BED INFORMATION. TRANSPORTATION WILL BE HERE [id number] Original Note: CRISIS HAS BEEN NOTIFIED PT NEEDS ASSESSED AND ALSO FAXED CHART
[2022-08-22 01:05] VITALS: RESP 16
[2022-08-22 02:16] VITALS: BP 123/61; PULSE 71; RESP 16; O2SAT 98
[2022-08-22] MEDS: traZODone 50 MG Tablet PO (02:57)
[2022-08-22 03:27] VITALS: PULSE 80; RESP 18
[2022-08-22] MEDS: LORazepam 1 MG Tablet PO (05:04)
[2022-08-22 05:19] VITALS: BP 135/56; PULSE 73; RESP 16; O2SAT 97
[2022-08-22 05:34] VITALS: BP 135/56; PULSE 73; RESP 16; TEMP 36.8; O2SAT 97
[2022-08-25 09:32] LABS: Pathologist Review Reviewed
== END 2022-08-22 06:56 ==
PROVIDERS: Emergency Provider Emergency Medicine; Visit Provider Emergency Medicine
DX: R45.851 Suicidal ideations (principal); R45.850 Homicidal ideations; F32.A Depression, unspecified; Z20.822 Contact with and (suspected) exposure to COVID-19
CPT/HCPCS: 80053; 80307; 82077; 84484; 85025; 87811; 93005; 99285

== ENCOUNTER 2022-10-13 15:59 | Emergency (ER) | payer MEDICAID, SELFPAY ==
[2022-10-13 16:00] VITALS: BP 155/84; PULSE 124; RESP 16; TEMP 36.6; O2SAT 96; BMI 32.1
--- NOTE | 2022-10-13 16:16 | EX.ED.VIS.PS ---
HPI HPI - Psych History of Present Illness Chief Complaint: Mental Health Informant: patient Onset/Context/Timing Onset: Days Narrative Narrative: Patient presents with suicidal and homicidal ideation. He states symptoms of been worse over the past couple of days. He does have suicidal ideation with thoughts of overdosing. He is never attempted an overdose in the past. He has tried to hurt himself in the past. He does not have homicidal ideation against any specific person. Patient was seen in the emergency room in August for similar symptoms and transferred to [facility]. He states his medications were adjusted at that time but he really did not feel like he was better. He has been seeing someone to the counseling center since his discharge and again states his medications have been adjusted but he does not feel like he is improving. [facility] Medical History Drug abuse Insomnia Marijuana use Sickle cell disease Tobacco abuse Home Medications baclofen 10 mg tablet 10 mg PO DAILY muscle spasms 30 days #30 tabs 08/15/22 [Rx Last Taken Unknown] duloxetine 60 mg capsule,delayed release 60 mg PO DAILY depression 30 days #30 caps 08/15/22 [Rx Last Taken Unknown] folic acid 1 mg tablet 1 mg PO DAILY supplement 30 days #30 tabs 08/15/22 [Rx Last Taken Unknown] buspirone 5 mg tablet 5 mg PO BID 10/13/22 [History Last Taken Unknown] olanzapine 5 mg tablet 20 mg PO DAILY mood 10/13/22 [History Last Taken Unknown] quetiapine 50 mg tablet 100 mg PO QHS mood 10/13/22 [History Last Taken Unknown] Allergy/AdvReac Type Severity Reaction Status Date / Time No Known Allergies Allergy Verified 10/13/22 16:02 Family History Other Sickle cell anemia Social History (Updated 10/13/22 @ 16:[address] Alona Shah MD) Smoking Status: Current every day smoker tobacco type: cigarettes alcohol intake: former details: 10/13/22: History of alcohol abuse but denies current alcohol consumption. substance use type: marijuana, heroin, opiates, painkillers and other details: 10/13/22: History of drug abuse, but denies current use. ROS ROS ED Constitutional Constitutional ED: Denies chills or fever(s) Eyes Eyes: Denies change in vision or discharge from eye(s) ENT ENT ED: Denies discharge from eye(s), rhinorrhea or sore throat Cardiovascular Cardiovascular: Denies chest pain or palpitations Respiratory/Chest Respiratory/Chest: Denies cough or dyspnea Gastrointestinal Gastrointestinal: Denies abdominal pain, diarrhea, nausea or vomiting Genitourinary Genitourinary ED: Denies difficulty urinating or dysuria Musculoskeletal Musculoskeletal: Denies back pain or extremity pain Integumentary Denies Abrasions or rash Neurologic Neurologic: Denies headache(s) or weakness Psychiatric Psychiatric: Reports anxiety, depression and suicidal ideation Endocrine Endocrinology: Denies polydipsia or polyuria Allergic/Immunologic Allergic/Immunologic ED: Denies lip swelling or urticaria EXAM Physical Exam Const Vital Signs: 10/13/22 16:00 10/13/22 23:00 Temperature 97.9 F Temperature Source Temporal Pulse Rate 124 H 99 Respiratory Rate 16 18 Blood Pressure 155/84 H 142/64 H Blood Pressure Mean 107 90 Pulse Ox 96 95 Oxygen Delivery Method Room Air Room Air Positive well nourished and well developed General Appearance ED: well developed HEENT Reports normocephalic and head/scalp atraumatic Eyes PERRL and EOMs intact bilaterally Neck supple Chest Wall inspection of chest normal and palpation of chest normal Resp normal respiratory effort and clear to auscultation bilaterally Cardio regular rate and regular rhythm GI normal to inspection, nondistended, normoactive bowel sounds Palpation: soft Back/Spine no CVA tenderness Extremity normal to inspection Neuro oriented x3 and no sensory deficits noted Sensorium / Orientation: alert Motor Exam: strength 5/5 throughout Psych mental status grossly normal, cooperative and speech normal Appearance: well kempt Attitude: calm Mood & Affect: depressed Thought Content: suicidality and homicidality Skin no rashes or lesions noted MDM MDM MDM Narrative Medical decision making narrative: Lab work for psychiatric clearance obtained. Lab Data Attestation: I reviewed the patient's lab results. Labs: Laboratory Results - last 24 hr 10/13/22 10/13/22 10/13/22 16:30 16:30 16:30 WBC 15.7 H RBC 4.77 Hgb 13.8 Hct 38.4 L MCV 80.5 MCH 28.9 MCHC 35.9 RDW Std Deviation 44.5 H RDW Coeff of Omar 15.3 H Plt Count 328 MPV 9.5 Immature Gran % (Auto) 0.300 Neut % (Auto) 54.6 Lymph % (Auto) 22.5 Coleman % (Auto) 13.0 H Eos % (Auto) 8.5 H Baso % (Auto) 1.1 H Absolute Neuts (auto) 8.6 H Absolute Lymphs (auto) 3.54 Nucleated RBC % 1.0 Differential Comment SCANNED Sodium 140 Potassium 4.0 Chloride 108 H Carbon Dioxide 25.0 Anion Gap 7 BUN 16 Creatinine 1.26 Estim Creat Clear Calc 111.96 Est GFR (MDRD) Af Amer 89 Est GFR (MDRD) Non-Af 73 BUN/Creatinine Ratio 12.7 Glucose 119 H Calcium 9.2 Urine Opiates Screen Urine Methadone Screen Ur Barbiturates Screen Ur Phencyclidine Scrn Ur Amphetamines Screen MDMA (Ecstasy) Screen U Benzodiazepines Scrn Urine Cocaine Screen U Cannabinoids Screen Ur Drug Screen Comment Ethyl Alcohol < 3.0 10/13/22 17:50 WBC RBC Hgb Hct MCV MCH MCHC RDW Std Deviation RDW Coeff of Omar Plt Count MPV Immature Gran % (Auto) Neut % (Auto) Lymph % (Auto) [place] % (Auto) Eos % (Auto) Baso % (Auto) Absolute Neuts (auto) Absolute Lymphs (auto) Nucleated RBC % Differential Comment Sodium Potassium Chloride Carbon Dioxide Anion Gap BUN Creatinine Estim Creat Clear Calc Est GFR (MDRD) Af Amer Est GFR (MDRD) Non-Af BUN/Creatinine Ratio Glucose Calcium Urine Opiates Screen NEGATIVE Urine Methadone Screen NEGATIVE Ur Barbiturates Screen NEGATIVE Ur Phencyclidine Scrn NEGATIVE Ur Amphetamines Screen NEGATIVE MDMA (Ecstasy) Screen NEGATIVE U Benzodiazepines Scrn NEGATIVE Urine Cocaine Screen NEGATIVE U Cannabinoids Screen NEGATIVE Ur Drug Screen Comment Ethyl Alcohol Treatment and Re-Evaluation Narrative: Patient's white count is elevated at 15.7 with normal differential. On review of prior labs it appears he runs a chronically elevated white count. Chemistry studies are unremarkable. EtOH is less than 3. Tox screen is negative. Patient was given p.o. Ativan to help with anxiety. Patient has been evaluated by crisis. They are working on placement and at this time he is pending at both [facility] and [facility]. Patient will be signed out to oncoming physician for continued observation while awaiting placement. Discharge Plan Triage Chief Complaint: Mental Health ED Provider: Alona Shah Dx/Rx/DC Orders Clinical Impression: Suicidal ideation Prescriptions: No Action baclofen 10 mg tablet 10 mg PO DAILY 30 Days Qty: 30 0RF Label Comments: TAKE 1/2 TO 1 TABLET MOUTH 3 TIMES DAILY NEEDED MAY CAUSE DROWSINESS folic acid 1 mg tablet 1 mg PO DAILY 30 Days Qty: 30 0RF Label Comments: TAKE 1 TABLET BY MOUTH EVERY DAY duloxetine 60 mg capsule,delayed release(DR/EC) 60 mg PO DAILY 30 Days Qty: 30 0RF Label Comments: TAKE 1 CAPSULE BY MOUTH DAILY olanzapine 5 mg tablet 20 mg PO DAILY Label Comments: TAKE 1 TABLET BY MOUTH EVERY DAY quetiapine 50 mg tablet 100 mg PO QHS Label Comments: TAKE 1 TABLET BY MOUTH EVERYDAY AT BEDTIME buspirone 5 mg tablet 5 mg PO BID Primary Care Provider: Care Physician,No Primary Referrals: Care Physician,No Primary [Primary Care Provider] - Disposition Disposition: Psychiatric Hospital or Unit
[2022-10-13] MEDS: LORazepam 1 MG Tablet PO ×2 (16:29→22:00)
[2022-10-13 16:36] LABS: Absolute Lymphocyte Count 3.54 X10^3/uL (0.83-4.51); Absolute Neutrophil Count 8.6 X10^3/uL (2.0-7.7); Basophil# 0.17 X10^3/uL; Basophil% 1.1 % (0-1); Eosinophil# 1.34 X10^3/uL; Eosinophils% 8.5 % (0-5); Hematocrit 38.4 % (40-54); Hemoglobin 13.8 g/dL (13.0-16.5); Lymphocyte # 3.54 X10^3/ul (0.83-4.51); Lymphocyte % 22.5 % (19-41); Mean Corp Hgb Conc 35.9 g/dL (32-36); Mean Corpuscular Hgb 28.9 pg (27.0-32.0); Mean Corpuscular Volume 80.5 fL (80-94); Mean Platelet Vol. 9.5 fl (6.2-12.0); Monocyte# 2.05 X10^3/uL; Neutrophil # 8.59 X10^3/uL (2.7-7.7); Neutrophil % 54.6 % (47-70); POSITIVE DIFFERENTIAL YES; Platelet Count 328 K/mm3 (150-450); RBC Distribution Width CV 15.3 % (11.6-14.6); RBC Distribution Width SD 44.5 fl (35.1-43.9); Red Blood Count 4.77 M/mm3 (4.6-6.2); White Blood Count 15.7 K/mm3 (4.4-11.0)
[2022-10-13 16:56] LABS: Anion Gap 7 (5-15); BUN 16 mg/dL (7-18); BUN/Creat Ratio 12.7 RATIO (10-20); Calcium,Total 9.2 mg/dL (8.5-10.1); Chloride 108 mmol/L (98-107); Creatinine, Serum 1.26 mg/dL (0.70-1.30); EST Glomerular Filtration Rate 73 mL/min (>60); Est Glom Filt Rate - Afr Amer 89 mL/min (>60); Estimated Creatinine Clearance 111.96 ml/min; Glucose 119 mg/dL (74-106); Sodium Level 140 mmol/L (136-145)
[2022-10-13 16:58] LABS: Differential Indicated SCAN CRITERIA MET
[2022-10-13 17:11] LABS: Alcohol, Blood (Medical)-Serum < 3.0 mg/dL
[2022-10-13 17:45] LABS: Differential Comment SCANNED
--- NOTE | 2022-10-13 18:07 | NURSING ---
CALLED CRISIS FAXED CHART TO BOTH NUMBERS
[2022-10-13 18:24] LABS: Amphetamine Urine VISTA NEGATIVE (<1000 ng/mL); Barbiturate Urine VISTA NEGATIVE (< 200 ng/mL); Benzodiazepine Urine VISTA NEGATIVE (< 200 ng/mL); Cocaine Urine VISTA NEGATIVE (< 300 ng/mL); Ecstacy Urine VISTA NEGATIVE (< 500 ng/mL); Methadone Urine VISTA NEGATIVE (< 300 ng/mL); PCP Urine VISTA NEGATIVE (< 25 ng/mL); THC Urine VISTA NEGATIVE (< 50 ng/mL); Vista UDS pH Range 4
--- NOTE | 2022-10-13 19:48 | EKG12_ITS ---
Test Reason : DYSRHYTHMIA Blood Pressure : / mmHG Vent. Rate : 117 BPM Atrial Rate : 117 BPM P-R Int : 170 ms QRS Dur : 080 ms QT Int : 320 ms P-R-T Axes : 050 043 -13 degrees QTc Int : 446 ms Sinus tachycardia T wave abnormality, consider inferior ischemia Abnormal ECG Confirmed by JESSE RADER, ASHLIE ([id number]), medical transcription editor WENDI SHAH ([id number]) on 10/15/2022 10:23:36 AM Referred By: TL Confirmed By:ASHLIE MOLINA MD
[2022-10-13 23:00] VITALS: BP 142/64; PULSE 99; RESP 18; O2SAT 95
[2022-10-14 06:51] VITALS: BP 136/79; BP 140/66; PULSE 101; PULSE 80; RESP 16; TEMP 36.6; O2SAT 98
[2022-10-14 06:52] VITALS: RESP 15
== END 2022-10-14 08:54 ==
PROVIDERS: Emergency Provider Emergency Medicine; Visit Provider Emergency Medicine
DX: R45.851 Suicidal ideations (principal); R45.850 Homicidal ideations; F17.210 Nicotine dependence, cigarettes, uncomplicated; Z20.822 Contact with and (suspected) exposure to COVID-19
CPT/HCPCS: 80048; 80307; 82077; 85025; 87811; 93005; 99284